=== PATIENT | female | born 1990 | race Caucasian/White ===

== ENCOUNTER 2016-06-11 16:29 | Emergency (ER) | payer OTHER ==
--- NOTE | 2016-06-11 17:53 | DIAGNOSTIC IMAGING REPORT ---
PROCEDURE: XR SCAPULA - RIGHT INDICATION: TRAUMA/INJURY TECHNIQUE: Two views of the scapula COMPARISON: None available FINDINGS: There is no fracture or dislocation. No osseous lesions. IMPRESSION: 1. No of fracture or dislocation
--- NOTE | 2016-06-11 17:55 | ED ORDER SUMMARY ---
..... Patient: REJI ROSALES OrderSheet [facility] VisitID: [id number] [place] [address] 25y, F Registration Date/Time: 06/11/2016 ORDER SHEET Weight: 74.8 kg (stated) Allergies: No Known Drug Allergy GENERAL ORDERS: Scapula Right Urgent (17:07 06/11/2016 EKoroleva P.A.-C) (Ack 17:08 LNations ER Tech1) (17:21 LNations ER Tech1) MEDICATION ORDERS: Motrin PO 800 mg (NOW) (17:29 06/11/2016 Michelle P.A.-C) (Ack 17:40 TChapman R.N.) (17:43 TChapman R.N.) Flexeril PO 10 mg (NOW) (17:30 06/11/2016 Michelle P.A.-C) (Ack 17:40 TChapman R.N.) (17:43 TChapman R.N.) IV FLUIDS: ORDER SHEET NOTES: [Electronically signed by Olena Horne R.N. (18:08 06/11/2016)] [Electronically signed by Sarah Webster.ATamar-C (19:40 06/11/2016)] [Electronically locked/signed by Olena Horne R.N. (18:08 06/11/2016)]
--- NOTE | 2016-06-11 17:55 | ED CLINICAL REPORT ---
Clinical Report - Physicians/Mid Levels [facility] [address] [place] [address] 06/11/2016 16:30 Patient: REJI ROSALES Time Seen: 17:14 Jun 11 2016. Arrived- By private vehicle. Historian- patient. HISTORY OF PRESENT ILLNESS Chief Complaint: right shoulder/ scapular. Location of injuries- right shoulder. The injury occurred yesterday. The patient sustained a blow. Fell. Patient tripped and fell backwards and laterally onto her shoulder, denies any injury to her neck. Posterior pain. Some pain with movement of the right shoulder. Injury to the area. R Hand dominant. Patient is a estimating engineer. REVIEW OF SYSTEMS No hearing loss, depression, bladder dysfunction or laceration. All systems otherwise negative, except as recorded above. PAST HISTORY Problems: Cough. Anxiety Reaction. Laceration. Vaginal Bleeding. . Bronchitis. Lifestyle / Substance Problems. Asthma. Immunizations. LNMP - Last Normal Menstrual Period. Dental Pain. Additional Surgeries: Elbow surgery. Right wrist. Tonsillectomy. Medications: None. Allergies: No Known Drug Allergy. SOCIAL HISTORY Smoker- current status unknown. Alcohol use. No drug use. ADDITIONAL NOTES The nursing notes have been reviewed. PHYSICAL EXAM Vital Signs: 06/11/2016 16:50 BP: 122/82. HR: 87. RR: 16. O2 saturation: 100%. Temp: 98.2 F. Pain level now: 6/10. Appearance: No backboard or C-collar. CVS: Pulses normal. Rhythm normal. Respiratory: Breath sounds normal. Chest nontender. Abdomen: No visible injury. Soft. Back: No tenderness. No tenderness or vertebral point tenderness. Extremities: Normal inspection. No abrasions. Right clavicle area. No tenderness, swelling, ecchymosis or puncture wound. Right shoulder: mild tenderness. Neurovascular intact distally. (posterior scapular, no rash/ ecchymosis/ erythema). No swelling, puncture wound, foreign body or deformity. Not localized to the distal clavicle. No joint effusion. Pelvis stable. Extremities atraumatic. Neuro: Liane Coma Scale: 15- eyes open spontaneously (4); best verbal response- oriented x 3 (5); best motor response- obeys commands (6). Oriented X 3. No motor deficit. LABS, X-RAYS, AND EKG Rt Scapula X-ray: (IMPRESSION: 1. No of fracture or dislocation Electronically Final signed by:Basim Zavala MD 06/11/2016 5:53:41 PM). PROGRESS AND PROCEDURES PROCEDURES (Right sling for comfort.). Course of Care: patient here in the ER with fair range of motion of the right shoulder, no clavicular pain, no cervical spine tenderness. No difficulty with breathing, no posterior or anterior lateral rib tenderness. Mild scapular tenderness primarily in the midline, no signs of fracture. Suspect soft tissue injury contusion status post fall. 06/11/2016 18:07 BP: 125/83. HR: 77. RR: 16. O2 saturation: 100%. Temp: 98.6 F. Pain level now: 3/10. Patient is stable. Patient/family counseled. Disposition: Discharged. Condition: good. CLINICAL IMPRESSION Contusion to the right shoulder. Fall on same level by tripping. INSTRUCTIONS Return to work tomorrow (Light duty for 7 days, limited use of Right Upper Extremity). Prescription Medications: Flexeril 10 mg: take 1 orally every 8 hours for 3 days as needed for muscle spasm. Dispense ten (10). No refills. Substitution is permissible. Motrin 800 mg tablets: take 1 tablet orally every 8 hours for 5 days, as needed for pain. Dispense fifteen (15). No refill. Substitution is permissible. Follow-up: Follow up with your doctor in three days. (Electronically signed by Sarah Webster P.A.-C 06/11/2016 19:40)
--- NOTE | 2016-06-11 17:55 | ED NURSING NOTES ---
Clinical Report - Nurses [facility] [place] [address] 06/11/2016 16:30 Patient: REJI ROSALES TRIAGE Triage time 16:51. Acuity: LEVEL 4. Chief Complaint: FALL. 16:56 06/11/16. --16:56 Olena Horne R.N. 16:50 06/11/16. BP: 122/82. HR: 87. RR: 16. O2 saturation: 100%. Temp: 98.2 F. Pain level now: 08/24. --16:56 Olena Horne R.N. Weight: 74.8 kg stated. Height/Length: 66 inches Per Patient. BMI: 26.6. --16:50 Olena Horne R.N. Medications None. --16:53 Olena Horne R.N. Allergies No Known Drug Allergy. --16:53 Olena Horne R.N. History Arrived by private vehicle. Historian: patient. Primary physician ([facility]). Location of injuries: right scapula area, right upper back, back, right shoulder and right arm. ( fell Friday am. used heat and aspircream. Pain is worse today then yesterday). SOCIAL HX: Heavy tobacco smoker (cigarette)- less than 1 pack per day. Alcohol use. No drug use. No infectious disease exposure. NUTRITIONAL RISK ASSESSMENT: The nutritional risk assessment revealed no deficiencies. FUNCTIONAL ASSESSMENT: Functional assessment: no impairments noted. LEARNING NEEDS ASSESSMENT: The learning needs assessment revealed no barriers. SKIN INTEGRITY ASSESSMENT: Skin integrity risk assessment completed. No skin integrity risk identified. --16:56 Olena Horne R.N. PROBLEMS: Asthma. --16:53 Olena Horne R.N. ADDITIONAL SURGERIES: Elbow surgery. Right wrist. Tonsillectomy. --16:53 Olena Horne R.N. Interventions ID band on patient. To treatment room. --16:56 Olena Horne R.N. PHYSICAL ASSESSMENT 16:57 06/11/16. GENERAL / NEURO / PSYCH: Alert. Oriented X 4. Appears in no acute distress. HEENT: Pupils equal, round and reactive to light. Head non-tender. RESPIRATORY: Respirations not labored. Chest nontender. Breath sounds within normal limits. CVS: Normal heart rate and rhythm. Pulses within normal limits. GI / : Abdomen soft and nontender. EXTREMITIES: Right shoulder: tenderness. SKIN: Skin intact. Skin is warm and dry. BACK: Limited ROM in the back. Soft tissue tenderness in the back. --16:57 Olena Horne R.N. NURSING PROGRESS NOTES 16:57 06/11/16. The plan of care for this patient has been created. Call light placed in reach. Side rails up x 1. Bed placed in lowest position. Brakes of bed on. Patient ready for evaluation. --16:57 Olena Horne R.N. 17:43 06/11/2016 Motrin PO Tablets 800 mg given. Allergies verified and confirmed 5 rights. --17:43 Olena Horne R.N. 17:43 06/11/2016 Flexeril (Cyclobenzaprine HCl) PO Tablets 10 mg given. Allergies verified and confirmed 5 rights. --17:43 Olena Horne R.N. 17:46 06/11/16. ( patient medicated for pain.). --17:46 Olena Horne R.N. 18:00. Sling applied to right arm by nurse; distal pulses intact, sensation intact and motor function within normal limits. --18:06 Olena Horne R.N. DISPOSITION / DISCHARGE 18:07 06/11/16. Condition at departure: improved. The goals identified in the patient's plan of care were met. No learning barriers present. Discharge instructions provided and reviewed. Reviewed medication(s) side effects and precautions information. Prescription(s) given to the patient. Verbalized understanding. Written instructions provided in Portuguese. The patient was discharged home and accompanied by brand marketing coordinator. She left the Emergency Department ambulatory and via private vehicle. Bevel Gear Generator Operator driving. --18:07 Olena Horne R.N. 18:07 06/11/16. BP: 125/83. HR: 77. RR: 16. O2 saturation: 100%. Temp: 98.6 F. Pain level now: 05/24. --18:07 Olena Horne R.N. Locked/Released at 06/11/2016 18:08 by Olena Horne R.N.
--- NOTE | 2016-06-11 17:55 | ED CLINICAL REPORT ---
Clinical Report - Physicians/Mid Levels [facility] [address] [place] [address] 06/11/2016 16:30 Patient: REJI ROSALES Time Seen: 17:14 Jun 11 2016. Arrived- By private vehicle. Historian- patient. HISTORY OF PRESENT ILLNESS Chief Complaint: right shoulder/ scapular. Location of injuries- right shoulder. The injury occurred yesterday. The patient sustained a blow. Fell. Patient tripped and fell backwards and laterally onto her shoulder, denies any injury to her neck. Posterior pain. Some pain with movement of the right shoulder. Injury to the area. R Hand dominant. Patient is a railroad carman. REVIEW OF SYSTEMS No hearing loss, depression, bladder dysfunction or laceration. All systems otherwise negative, except as recorded above. PAST HISTORY Problems: Cough. Anxiety Reaction. Laceration. Vaginal Bleeding. . Bronchitis. Lifestyle / Substance Problems. Asthma. Immunizations. LNMP - Last Normal Menstrual Period. Dental Pain. Additional Surgeries: Elbow surgery. Right wrist. Tonsillectomy. Medications: None. Allergies: No Known Drug Allergy. SOCIAL HISTORY Smoker- current status unknown. Alcohol use. No drug use. ADDITIONAL NOTES The nursing notes have been reviewed. PHYSICAL EXAM Vital Signs: 06/11/2016 16:50 BP: 122/82. HR: 87. RR: 16. O2 saturation: 100%. Temp: 98.2 F. Pain level now: 6/10. Appearance: No backboard or C-collar. CVS: Pulses normal. Rhythm normal. Respiratory: Breath sounds normal. Chest nontender. Abdomen: No visible injury. Soft. Back: No tenderness. No tenderness or vertebral point tenderness. Extremities: Normal inspection. No abrasions. Right clavicle area. No tenderness, swelling, ecchymosis or puncture wound. Right shoulder: mild tenderness. Neurovascular intact distally. (posterior scapular, no rash/ ecchymosis/ erythema). No swelling, puncture wound, foreign body or deformity. Not localized to the distal clavicle. No joint effusion. Pelvis stable. Extremities atraumatic. Neuro: Liane Coma Scale: 15- eyes open spontaneously (4); best verbal response- oriented x 3 (5); best motor response- obeys commands (6). Oriented X 3. No motor deficit. LABS, X-RAYS, AND EKG Rt Scapula X-ray: (IMPRESSION: 1. No of fracture or dislocation Electronically Final signed by:Basim Zavala MD 06/11/2016 5:53:41 PM). PROGRESS AND PROCEDURES PROCEDURES (Right sling for comfort.). Course of Care: patient here in the ER with fair range of motion of the right shoulder, no clavicular pain, no cervical spine tenderness. No difficulty with breathing, no posterior or anterior lateral rib tenderness. Mild scapular tenderness primarily in the midline, no signs of fracture. Suspect soft tissue injury contusion status post fall. 06/11/2016 18:07 BP: 125/83. HR: 77. RR: 16. O2 saturation: 100%. Temp: 98.6 F. Pain level now: 3/10. Patient is stable. Patient/family counseled. Disposition: Discharged. Condition: good. CLINICAL IMPRESSION Contusion to the right shoulder. Fall on same level by tripping. INSTRUCTIONS Return to work tomorrow (Light duty for 7 days, limited use of Right Upper Extremity). Prescription Medications: Flexeril 10 mg: take 1 orally every 8 hours for 3 days as needed for muscle spasm. Dispense ten (10). No refills. Substitution is permissible. Motrin 800 mg tablets: take 1 tablet orally every 8 hours for 5 days, as needed for pain. Dispense fifteen (15). No refill. Substitution is permissible. Follow-up: Follow up with your doctor in three days. (Electronically signed by Sarah Webster P.A.-C 06/11/2016 19:40)
--- NOTE | 2016-06-11 17:55 | ED ORDER SUMMARY ---
..... Patient: REJI ROSALES OrderSheet [facility] VisitID: [id number] [place] [address] 25y, F Registration Date/Time: 06/11/2016 ORDER SHEET Weight: 74.8 kg (stated) Allergies: No Known Drug Allergy GENERAL ORDERS: Scapula Right Urgent (17:07 06/11/2016 EKoroleva P.A.-C) (Ack 17:08 LNations ER Tech1) (17:21 LNations ER Tech1) MEDICATION ORDERS: Motrin PO 800 mg (NOW) (17:29 06/11/2016 Michelle P.A.-C) (Ack 17:40 TChapman R.N.) (17:43 TChapman R.N.) Flexeril PO 10 mg (NOW) (17:30 06/11/2016 Michelle P.A.-C) (Ack 17:40 TChapman R.N.) (17:43 TChapman R.N.) IV FLUIDS: ORDER SHEET NOTES: [Electronically signed by Olena Horne R.N. (18:08 06/11/2016)] [Electronically signed by Sarah Webster.ATamar-C (19:40 06/11/2016)] [Electronically locked/signed by Olena Horne R.N. (18:08 06/11/2016)]
--- NOTE | 2016-06-11 17:55 | ED NURSING NOTES ---
Clinical Report - Nurses [facility] [place] [address] 06/11/2016 16:30 Patient: REJI ROSALES TRIAGE Triage time 16:51. Acuity: LEVEL 4. Chief Complaint: FALL. 16:56 06/11/16. --16:56 Olena Horne R.N. 16:50 06/11/16. BP: 122/82. HR: 87. RR: 16. O2 saturation: 100%. Temp: 98.2 F. Pain level now: 08/24. --16:56 Olena Horne R.N. Weight: 74.8 kg stated. Height/Length: 66 inches Per Patient. BMI: 26.6. --16:50 Olena Horne R.N. Medications None. --16:53 Olena Horne R.N. Allergies No Known Drug Allergy. --16:53 Olena Horne R.N. History Arrived by private vehicle. Historian: patient. Primary physician ([facility]). Location of injuries: right scapula area, right upper back, back, right shoulder and right arm. ( fell Friday am. used heat and aspircream. Pain is worse today then yesterday). SOCIAL HX: Heavy tobacco smoker (cigarette)- less than 1 pack per day. Alcohol use. No drug use. No infectious disease exposure. NUTRITIONAL RISK ASSESSMENT: The nutritional risk assessment revealed no deficiencies. FUNCTIONAL ASSESSMENT: Functional assessment: no impairments noted. LEARNING NEEDS ASSESSMENT: The learning needs assessment revealed no barriers. SKIN INTEGRITY ASSESSMENT: Skin integrity risk assessment completed. No skin integrity risk identified. --16:56 Olena Horne R.N. PROBLEMS: Asthma. --16:53 Olena Horne R.N. ADDITIONAL SURGERIES: Elbow surgery. Right wrist. Tonsillectomy. --16:53 Olena Horne R.N. Interventions ID band on patient. To treatment room. --16:56 Olena Horne R.N. PHYSICAL ASSESSMENT 16:57 06/11/16. GENERAL / NEURO / PSYCH: Alert. Oriented X 4. Appears in no acute distress. HEENT: Pupils equal, round and reactive to light. Head non-tender. RESPIRATORY: Respirations not labored. Chest nontender. Breath sounds within normal limits. CVS: Normal heart rate and rhythm. Pulses within normal limits. GI / : Abdomen soft and nontender. EXTREMITIES: Right shoulder: tenderness. SKIN: Skin intact. Skin is warm and dry. BACK: Limited ROM in the back. Soft tissue tenderness in the back. --16:57 Olena Horne R.N. NURSING PROGRESS NOTES 16:57 06/11/16. The plan of care for this patient has been created. Call light placed in reach. Side rails up x 1. Bed placed in lowest position. Brakes of bed on. Patient ready for evaluation. --16:57 Olena Horne R.N. 17:43 06/11/2016 Motrin PO Tablets 800 mg given. Allergies verified and confirmed 5 rights. --17:43 Olena Horne R.N. 17:43 06/11/2016 Flexeril (Cyclobenzaprine HCl) PO Tablets 10 mg given. Allergies verified and confirmed 5 rights. --17:43 Olena Horne R.N. 17:46 06/11/16. ( patient medicated for pain.). --17:46 Olena Horne R.N. 18:00. Sling applied to right arm by nurse; distal pulses intact, sensation intact and motor function within normal limits. --18:06 Olena Horne R.N. DISPOSITION / DISCHARGE 18:07 06/11/16. Condition at departure: improved. The goals identified in the patient's plan of care were met. No learning barriers present. Discharge instructions provided and reviewed. Reviewed medication(s) side effects and precautions information. Prescription(s) given to the patient. Verbalized understanding. Written instructions provided in Lithuanian. The patient was discharged home and accompanied by contracts advisor. She left the Emergency Department ambulatory and via private vehicle. Warehouse Hand driving. --18:07 Olena Horne R.N. 18:07 06/11/16. BP: 125/83. HR: 77. RR: 16. O2 saturation: 100%. Temp: 98.6 F. Pain level now: 05/24. --18:07 Olena Horne R.N. Locked/Released at 06/11/2016 18:08 by Olena Horne R.N.
--- NOTE | 2016-06-11 19:41 | ED MAR SUMMARY ---
..... Medication Administration Record [facility] [address] [place] [address] Patient: REJI ROSALES Visit ID: [id number] 25y, F Weight: 74.8 kg Height/Length: 66 in BMI: 26.6 ALLERGIES: No Known Drug Allergy Given 17:06/11/2016 Olena Horne RTamarNTamar Medication Administered: MOTRIN [PO], Dose: 800 mg Tablets PO. Medication Ordered: Motrin PO 800 mg (NOW). Given 17:06/11/2016 Olena Horne, R.N. Medication Administered: FLEXERIL [PO] (CYCLOBENZAPRINE HCL), Dose: 10 mg Tablets PO. Medication Ordered: Flexeril PO 10 mg (NOW).
--- NOTE | 2016-06-11 19:41 | ED MED RECONCILIATION SUMMARY ---
Patient: REJI ROSALES Medication Reconciliation Report [facility] VisitID: [id number] [place] [address] 25y, F Registration Date/Time: 06/11/2016 Weight: 74.8 kg Height/Length: 66 in. BMI: 26.6 ALLERGIES: No Known Drug Allergy The patient's Home Medications are listed below: NONE. The source(s) of the original Home Medication information: Not obtained. The following Medications were given to the patient in the Emergency Department: Motrin [PO] PO 800 mg, administered: 06/11/2016 5:43:00 PM Flexeril [PO] PO 10 mg, administered: 06/11/2016 5:43:00 PM The following Medications were prescribed to the patient: Flexeril 10 mg: take 1 orally every 8 hours for 3 days as needed for muscle spasm. Dispense ten (10). No refills. Substitution is permissible. -- Sarah Webster, P.AAziza Motrin 800 mg tablets: take 1 tablet orally every 8 hours for 5 days, as needed for pain. Dispense fifteen (15). No refill. Substitution is permissible. -- Sarah Webster, P.A.-C
--- NOTE | 2016-06-11 19:41 | ED MED RECONCILIATION SUMMARY ---
Patient: REJI ROSALES Medication Reconciliation Report [facility] VisitID: [id number] [place] [address] 25y, F Registration Date/Time: 06/11/2016 Weight: 74.8 kg Height/Length: 66 in. BMI: 26.6 ALLERGIES: No Known Drug Allergy The patient's Home Medications are listed below: NONE. The source(s) of the original Home Medication information: Not obtained. The following Medications were given to the patient in the Emergency Department: Motrin [PO] PO 800 mg, administered: 06/11/2016 5:43:00 PM Flexeril [PO] PO 10 mg, administered: 06/11/2016 5:43:00 PM The following Medications were prescribed to the patient: Flexeril 10 mg: take 1 orally every 8 hours for 3 days as needed for muscle spasm. Dispense ten (10). No refills. Substitution is permissible. -- Sarah Webster, P.AAziza Motrin 800 mg tablets: take 1 tablet orally every 8 hours for 5 days, as needed for pain. Dispense fifteen (15). No refill. Substitution is permissible. -- Sarah Webster, P.A.-C
--- NOTE | 2016-06-11 19:41 | ED MAR SUMMARY ---
..... Medication Administration Record [facility] [address] [place] [address] Patient: REJI ROSALES Visit ID: [id number] 25y, F Weight: 74.8 kg Height/Length: 66 in BMI: 26.6 ALLERGIES: No Known Drug Allergy Given 17:06/11/2016 Olena Horne RTamarNTamar Medication Administered: MOTRIN [PO], Dose: 800 mg Tablets PO. Medication Ordered: Motrin PO 800 mg (NOW). Given 17:06/11/2016 Olena Horne, R.N. Medication Administered: FLEXERIL [PO] (CYCLOBENZAPRINE HCL), Dose: 10 mg Tablets PO. Medication Ordered: Flexeril PO 10 mg (NOW).
--- NOTE | 2016-06-11 19:41 | ED DISCHARGE INSTRUCTIONS ---
Patient: REJI ROSALES General Instructions [facility] VisitID: [id number] [place] [address] 25y, F Registration Date/Time: 06/11/2016 Contusion to the right shoulder. Fall on same level by tripping. INSTRUCTIONS Return to work tomorrow (Light duty for 7 days, limited use of Right Upper Extremity). Prescription Medications: Flexeril 10 mg: take 1 orally every 8 hours for 3 days as needed for muscle spasm. Dispense ten (10). No refills. Substitution is permissible. Motrin 800 mg tablets: take 1 tablet orally every 8 hours for 5 days, as needed for pain. Dispense fifteen (15). No refill. Substitution is permissible. Follow-up: Follow up with your doctor in three days. ADDITIONAL INFORMATION Shoulder Contusion You have a contusion of your shoulder. This causes local pain, swelling, and sometimes bruising. There are no broken bones. This injury takes a few days, or up to six weeks to heal, depending on the severity. Moderate to severe shoulder contusions are treated with a sling or shoulder immobilizer. Minor contusions can be treated without any special support. Home Care: If a sling was provided, leave it in place for the time advised by your doctor. If you are unsure how long to wear it, ask for advice. If the sling becomes loose, adjust it so that your forearm is level with the ground and the shoulder feels well supported. Apply an ice pack (ice cubes in a plastic bag, wrapped in a towel) over the injured area for 20 minutes every 1 to 2 hours the first day for pain relief. Continue this 3 to 4 times a day until the pain and swelling go away. You may use acetaminophen (Tylenol) or ibuprofen (Motrin, Advil) to control pain, unless another pain medicine was prescribed. (NOTE: If you have chronic liver or kidney disease or ever had a stomach ulcer or GI bleeding, talk with your doctor before using these medicines.) Shoulder joints become stiff if left in a sling for too long. [id number] exercises should usually be started within the first ten days after injury. Consult your doctor on what type of exercises to do and how soon to start. Unless you were told otherwise, you may remove the sling to shower or bathe. Follow Up with your doctor, or as advised by our staff, if you are not starting to improve within the next 5 days. Get Prompt Medical Attention if any of the following occur: Pain or swelling increases Large amount of bruising of the shoulder or upper arm Hand or fingers become cold, blue, numb or tingly Cyclobenzaprine Hydrochloride Oral tablet What is this medicine? CYCLOBENZAPRINE (thu rangel) is a muscle relaxer. It is used to treat muscle pain, spasms, and stiffness. How should I use this medicine? Take this medicine by mouth with a glass of water. Follow the directions on the prescription label. If this medicine upsets your stomach, take it with food or milk. Take your medicine at regular intervals. Do not take it more often than directed. Talk to your hatch boss regarding the use of this medicine in children. Special care may be needed. What side effects may I notice from receiving this medicine? Side effects that you should report to your doctor or health home care giver as soon as possible: allergic reactions like skin rash, itching or hives, swelling of the face, lips, or tongue chest pain fast heartbeat hallucinations seizures vomiting Side effects that usually do not require medical attention (report to your doctor or health home care giver if they continue or are bothersome): headache What may interact with this medicine? Do not take this medicine with any of the following medications: cisapride droperidol flecainide grepafloxacin halofantrine levomethadyl MAOIs like Carbex, Eldepryl, Marplan, Nardil, and Parnate nilotinib pimozide probucol sertindole This medicine may also interact with the following medications: abarelix alcohol contrast dyes dolasetron guanethidine medicines for cancer medicines for depression, anxiety, or psychotic disturbances medicines to treat an irregular heartbeat medicines used for sleep or numbness during surgery or procedure methadone octreotide ondansetron palonosetron phenothiazines like chlorpromazine, mesoridazine, prochlorperazine, thioridazine some medicines for infection like alfuzosin, chloroquine, clarithromycin, levofloxacin, mefloquine, pentamidine, troleandomycin tramadol vardenafil What if I miss a dose? If you miss a dose, take it as soon as you can. If it is almost time for your next dose, take only that dose. Do not take double or extra doses. Where should I keep my medicine? Keep out of the reach of children. Store at room temperature between 15 and 30 degrees C (59 and 86 degrees F). Keep container tightly closed. Throw away any unused medicine after the expiration date. What should I tell my health care provider before I take this medicine? They need to know if you have any of these conditions: heart disease, irregular heartbeat, or previous heart attack liver disease thyroid problem an unusual or allergic reaction to cyclobenzaprine, tricyclic antidepressants, lactose, other medicines, foods, dyes, or preservatives or trying to get breast-feeding What should I watch for while using this medicine? Check with your doctor or health home care giver if your condition does not improve within 1 to 3 weeks. You may get drowsy or dizzy when you first start taking the medicine or change doses. Do not drive, use machinery, or do anything that may be dangerous until you know how the medicine affects you. Stand or sit up slowly. Your mouth may get dry. Drinking water, chewing sugarless gum, or sucking on hard candy may help. You have been given the following additional information: Shoulder Contusion Cyclobenzaprine Hydrochloride Oral tablet Return to work tomorrow (Light duty for 7 days, limited use of Right Upper Extremity). (Electronically signed by Sarah Webster P.A.-C 06/11/2016 19:40)
--- NOTE | 2016-06-11 19:41 | ED DISCHARGE INSTRUCTIONS ---
Patient: REJI ROSALES General Instructions [facility] VisitID: [id number] [place] [address] 25y, F Registration Date/Time: 06/11/2016 Contusion to the right shoulder. Fall on same level by tripping. INSTRUCTIONS Return to work tomorrow (Light duty for 7 days, limited use of Right Upper Extremity). Prescription Medications: Flexeril 10 mg: take 1 orally every 8 hours for 3 days as needed for muscle spasm. Dispense ten (10). No refills. Substitution is permissible. Motrin 800 mg tablets: take 1 tablet orally every 8 hours for 5 days, as needed for pain. Dispense fifteen (15). No refill. Substitution is permissible. Follow-up: Follow up with your doctor in three days. ADDITIONAL INFORMATION Shoulder Contusion You have a contusion of your shoulder. This causes local pain, swelling, and sometimes bruising. There are no broken bones. This injury takes a few days, or up to six weeks to heal, depending on the severity. Moderate to severe shoulder contusions are treated with a sling or shoulder immobilizer. Minor contusions can be treated without any special support. Home Care: If a sling was provided, leave it in place for the time advised by your doctor. If you are unsure how long to wear it, ask for advice. If the sling becomes loose, adjust it so that your forearm is level with the ground and the shoulder feels well supported. Apply an ice pack (ice cubes in a plastic bag, wrapped in a towel) over the injured area for 20 minutes every 1 to 2 hours the first day for pain relief. Continue this 3 to 4 times a day until the pain and swelling go away. You may use acetaminophen (Tylenol) or ibuprofen (Motrin, Advil) to control pain, unless another pain medicine was prescribed. (NOTE: If you have chronic liver or kidney disease or ever had a stomach ulcer or GI bleeding, talk with your doctor before using these medicines.) Shoulder joints become stiff if left in a sling for too long. Ynosq-sa-obcsze exercises should usually be started within the first ten days after injury. Consult your doctor on what type of exercises to do and how soon to start. Unless you were told otherwise, you may remove the sling to shower or bathe. Follow Up with your doctor, or as advised by our staff, if you are not starting to improve within the next 5 days. Get Prompt Medical Attention if any of the following occur: Pain or swelling increases Large amount of bruising of the shoulder or upper arm Hand or fingers become cold, blue, numb or tingly Cyclobenzaprine Hydrochloride Oral tablet What is this medicine? CYCLOBENZAPRINE (thu rangel) is a muscle relaxer. It is used to treat muscle pain, spasms, and stiffness. How should I use this medicine? Take this medicine by mouth with a glass of water. Follow the directions on the prescription label. If this medicine upsets your stomach, take it with food or milk. Take your medicine at regular intervals. Do not take it more often than directed. Talk to your esters and emulsifiers supervisor regarding the use of this medicine in children. Special care may be needed. What side effects may I notice from receiving this medicine? Side effects that you should report to your doctor or health respiratory care assistant as soon as possible: allergic reactions like skin rash, itching or hives, swelling of the face, lips, or tongue chest pain fast heartbeat hallucinations seizures vomiting Side effects that usually do not require medical attention (report to your doctor or health respiratory care assistant if they continue or are bothersome): headache What may interact with this medicine? Do not take this medicine with any of the following medications: cisapride droperidol flecainide grepafloxacin halofantrine levomethadyl MAOIs like Carbex, Eldepryl, Marplan, Nardil, and Parnate nilotinib pimozide probucol sertindole This medicine may also interact with the following medications: abarelix alcohol contrast dyes dolasetron guanethidine medicines for cancer medicines for depression, anxiety, or psychotic disturbances medicines to treat an irregular heartbeat medicines used for sleep or numbness during surgery or procedure methadone octreotide ondansetron palonosetron phenothiazines like chlorpromazine, mesoridazine, prochlorperazine, thioridazine some medicines for infection like alfuzosin, chloroquine, clarithromycin, levofloxacin, mefloquine, pentamidine, troleandomycin tramadol vardenafil What if I miss a dose? If you miss a dose, take it as soon as you can. If it is almost time for your next dose, take only that dose. Do not take double or extra doses. Where should I keep my medicine? Keep out of the reach of children. Store at room temperature between 15 and 30 degrees C (59 and 86 degrees F). Keep container tightly closed. Throw away any unused medicine after the expiration date. What should I tell my health care provider before I take this medicine? They need to know if you have any of these conditions: heart disease, irregular heartbeat, or previous heart attack liver disease thyroid problem an unusual or allergic reaction to cyclobenzaprine, tricyclic antidepressants, lactose, other medicines, foods, dyes, or preservatives or trying to get breast-feeding What should I watch for while using this medicine? Check with your doctor or health respiratory care assistant if your condition does not improve within 1 to 3 weeks. You may get drowsy or dizzy when you first start taking the medicine or change doses. Do not drive, use machinery, or do anything that may be dangerous until you know how the medicine affects you. Stand or sit up slowly. Your mouth may get dry. Drinking water, chewing sugarless gum, or sucking on hard candy may help. You have been given the following additional information: Shoulder Contusion Cyclobenzaprine Hydrochloride Oral tablet Return to work tomorrow (Light duty for 7 days, limited use of Right Upper Extremity). (Electronically signed by Sarah Webster P.A.-C 06/11/2016 19:40)
== END 2016-06-11 18:31 | disposition home or self-care (01) ==
LOC: ED SRH 16:29
DX: S40.011A Contusion of right shoulder, initial encounter (principal); W01.0XXA Fall on same level from slipping, tripping and stumbling without subsequent striking against object, initial encounter; Y93.9 Activity, unspecified; Y92.9 Unspecified place or not applicable; Y99.9 Unspecified external cause status